=== PATIENT | female | born 1980 | race Caucasian/White ===

== ENCOUNTER 2023-12-14 20:09 | Emergency (ER) | payer OTHER, SELFPAY ==
[2023-12-14 20:16] VITALS: BP 126/79
[2023-12-14 20:46] VITALS: BMI 26.6
--- NOTE | 2023-12-14 20:52 | EDRN ---
Couple days ago pt felt like she was getting a uti which she says she has not had in 20 years. Pt said there was a bad smell and she was concerned it was also a yeast infection. 5 days ago pt noted blood in her urine. Pt woke this morning and she
was unable to move - pt feels pain from pubic area across center to top of legs, around to back and posterior hips. Pt says her head is pounding and admits she has been crying. Pt has not been to her physician for symptoms. Pt has urologist
across the street. No fever/chills/cough. Pt notes burning with urination, muscles hurt. No blood noted in urine today. Pt has 2 broken ribs on R side and says she never went to a doctor - pt self diagnosed 2 broken ribs 'because you can feel
them, I fell really hard' so pt has intermittent cp/sob. Nausea no vomiting. No diarrhea. Pt reports constipation and says her last BM was couple days ago.
[2023-12-14 20:56] LABS: Urine Albumin Negative (Neg - Trace); Urine Bilirubin Negative (Negative); Urine Character Very Cloudy (Clear); Urine Color Yellow; Urine Glucose Negative (Negative); Urine Ketone Negative (Negative); Urine Leukocyte 1+ (Negative); Urine Nitrite Positive (Negative); Urine Occult Blood Negative (Negative); Urine Urobilinogen Negative (Neg - 1+)
[2023-12-14 21:03] LABS: Urine Amorphous Seen; Urine Squamous Cell >30 /LPF (Few)
[2023-12-14 21:04] LABS: Urine Bacteria Many (Negative); Urine White Cell >100 /HPF (0-5)
[2023-12-14 21:05] LABS: Urine Red Blood Cell 0-2 /HPF (0-2)
--- NOTE | 2023-12-14 21:05 | EDRN ---
Pt took ibuprofen in the afternoon for headache and a second 325mg aspirin around 1830. Pt has photophobia.
[2023-12-14 21:11] VITALS: BP 109/84
--- NOTE | 2023-12-14 21:36 | ED.GENMED ---
Addendum entered and electronically signed by Sonido Bell PA-C 12/17/23 07:31:
Urine culture shows greater than 100,000 colony-forming units of gram-negative bacilli. Treated with Keflex. Sensitivities pending.
Original Note:
History of Present Illness
General
Chief Complaint: Abdominal Symptoms
Source: patient
Exam Limitations: none
Time Seen by Provider: 12/14/23 21:17
Nursing documentation reviewed up to this point in time: agreed with
History of Present Illness
History of Present Illness:
43-year-old female presents emergency department complaining of bilateral flank pain and suprapubic pain. She reports dysuria. This feels similar to prior urinary tract infections. She also has a headache which is similar to prior. She has a
history of migraines.
Past History
Past History
ED Past Medical History: Psychiatric (Bipolar disorder, Anxiety, Depression, PTSD, Binge eating disorer, ) and Other (Endometriosis, irritable bowel, Migraines, myofascial syndrome, chronic sinusitis,Endometriosis, Fatty liver, Kidney stones)
ED Past Surgical History: and Gynecological (Hysterectomy, [place], )
Social History
Tobacco: Smoker
Alcohol: None
Drug: None
Personal:
Living: with family
Family History
Family History: Other (nc)
Review of Systems
Review of Systems
Allergies reviewed?: Yes
All Other Systems: Not applicable
Constitutional: Reports no symptoms
EENT: Reports no symptoms
Respiratory: Reports no symptoms
Cardiac: Reports no symptoms
ABD/GI: Reports no symptoms
: Reports dysuria and flank pain
Musculoskeletal: Reports no symptoms
Skin: Reports no symptoms
Neurological: Reports no symptoms
Endocrine: Reports no symptoms
Hematologic/Lymphatic: Reports no symptoms
Psychiatric: Reports no symptoms
Phy Exam
Physical Exam
Physical Exam:
Physical Exam
General: no apparent distress, not acutely ill
Neck: supple. no meningeal signs. normal posterior pharynx
Heart: s1/s2 regular rate and rhythm, no murmur. equal radial
pulses.
HEENT: Pupils equal round reactive to light, EOMI
Lungs: no acute respiratory distress. clear bilaterally
Abdomen: normal bowel sounds. Mild suprapubic tenderness, no rebound or guarding. No CVAT
Neuro: alert and oriented. no focal neurological deficits
Skin: no rash
Psychiatric: well kept. interactive and cooperative
Extremities: no edema. no calf tenderness. negative homans. good distal pulses
Course
Orders/Labs/Results
Orders:
Orders
12/14/23 20:51
Urinalysis Reflex To Culture Urgent
Date Specimen was Collected: 12/14/23
Time Specimen was Collected: 20:46
Urine Microscopic Reflex Cult Urgent
Urine Culture Urgent
[facility]ILBUR Source: U
Specimen Description:
Date Specimen was Collected: 12/14/23
Time Specimen was Collected: 20:46
12/14/23 21:29
CT Abd/pel Without Iv Or Oral Urgent
Comment:
Reason For Exam: left flank pain, dysuria
IV Insert/Care/Rem.- Treatment PRN
0.9% Sodium Chloride 1000 ml [Nss] 1,000 ml IV BOLUS
12/14/23 21:32
Ketorolac [Toradol] 15 mg IV NOW STA
12/14/23 21:40
Complete Blood Count/With Diff Urgent
Comprehensive Metabolic Panel Urgent
12/14/23 23:04
Ketorolac [Toradol] 15 mg .ROUTE .STK-MED ONE
Ketorolac [Toradol] 15 mg IV NOW STA
12/15/23 00:56
Cephalexin Monohydrate [Keflex] 500 mg PO NOW STA
12/15/23 01:00
Rizatriptan Orally Disintegrat [Maxalt [employer] (Orally Disintegrating)] 10 mg PO ONCE ONE
Abnormal Lab Results
12/14/23 12/14/23
20:51 21:40
Hct 35.8 L %
(37.0-47.0)
Abs Immat Gran (auto) 0.1 H 10^3/uL
(0-0.05)
Absolute Neuts (auto) 7.2 H 10^3/uL
(1.4-6.5)
Absolute Lymphs (auto) 0.3 L 10^3/uL
(1.2-3.4)
Absolute Monos (auto) 0.7 H 10^3/uL
(0.1-0.6)
Immature Gran % 0.6 H %
(0-0.5)
Neutrophils % 85.1 H %
(42.2-75.2)
Lymphocytes % 4.1 L %
(20.5-51.1)
Urine Nitrite (Reflex) Positive A
(Negative)
Leukocyte Esterase Rfl 1+ A
(Negative)
Urine WBC (Reflex) >100 A /HPF
(0-5)
Urine Bacteria (Reflex) Many A
(Negative)
12/14/23 21:40
12/14/23 21:40
Vital Signs
Initial and Last Documented VS:
Initial Vital Signs
Temp Pulse Resp BP Pulse Ox
99.5 F 95 16 126/79 100
12/14/23 20:16 12/14/23 20:16 12/14/23 20:16 12/14/23 20:16 12/14/23 20:16
Last Documented Vital Signs
Temp Pulse Resp BP Pulse Ox
99.5 F 86 23 118/74 100
12/14/23 20:16 12/15/23 00:01 12/15/23 00:01 12/15/23 00:00 12/14/23 20:16
MDM/Problems Addressed
Differential Diagnosis Includes:
Kidney stone, pyelonephritis
MDM/Problems Addressed:
43-year-old female with migraine, cystitis. No signs of pyelonephritis or kidney stone. Treated with Keflex, Maxalt. Migraine similar to prior. Stable for discharge
Chronic conditions affecting care: Other (Cystitis)
Acute Exacerbation and/or Progression of Chronic Illness: Other (Cystitis)
*Radiology
Radiology exam reviewed: radiology read reviewed (CT abdomen pelvis shows likely cystitis)
*Critical Care Note
Total Time (30-74mins, 75-104mins- exclusive of procedures): Not Applicable
Patient Management
Social determinants of health affecting care: Living situation
Escalation/DeEscalation of care consider admission/obs:
Not indicated
ED Attending Note
-
Portions of this chart may have been created with voice recognition software.� Occasional wrong word or��sound alike� substitutions may have occurred due to the inherent limitations of voice recognition software.
Discharge Plan
Departure
Patient Disposition: Home (Routine Discharge)
Date of Disposition: 12/15/23
Time of Disposition: 01:02
Patient with high blood pressure during this ER visit?: No
Condition: Good
Discharge Problem:
Cystitis, Migraine
Instructions: Migraine in adults, Urinary Tract Infection, Adult ED
Prescriptions:
New
cephalexin 500 mg capsule
500 mg PO BID 7 Days Qty: 14 0RF
rizatriptan 5 mg tablet,disintegrating
10 mg PO Q2H MDD 30 mg PRN (Reason: migraine headache) Qty: 10 0RF
No Action
lamotrigine [Lamictal] 200 mg Tablet
200 mg PO DAILY
venlafaxine [Effexor XR] 150 mg Capsule,Extended Release 24hr
150 mg PO DAILY
dextroamphetamine-amphetamine [Adderall XR] 30 mg Capsule,Extended Release 24hr
30 mg PO DAILY
Referrals:
Nicolasa Sanchez PA-C [Family Provider] -
Susan Gill DO [Active] - Call in 1-3 days for appt
Interventions
Interventions:
*Risk Screen - Suicide Last Done: 12/14/23 20:46
*General Assessment Last Done: 12/14/23 20:46
*Neglect/Abuse Screening Last Done: 12/14/23 20:46
*ED COVID-19 Vaccine History Last Done: 12/14/23 20:46
GI-Zkltsf-Fjgnysdcdc Assessment Last Done: 12/14/23 21:02
Discharge Date and Time
Print Language: UPPER SORBIAN
[2023-12-14] MEDS: NSS 1000 IV (21:41)
[2023-12-14] MEDS: TORADOL 15 MG IV ×2 (21:45→23:07)
[2023-12-14 21:46] LABS: % Basophils 0.5 % (0-2); % Eosinophils 1.7 % (0-6); % Immature Granulocytes 0.6 % (0-0.5); % Lymphocytes 4.1 % (20.5-51.1); % Neutrophils 85.1 % (42.2-75.2); Absolute Eosinophils 0.1 10^3/uL (0-0.7); Absolute Immature Granulocytes 0.1 10^3/uL (0-0.05); Absolute Lymphocytes 0.3 10^3/uL (1.2-3.4); Absolute Monocytes 0.7 10^3/uL (0.1-0.6); Absolute Neutrophils 7.2 10^3/uL (1.4-6.5); Hematocrit 35.8 % (37.0-47.0); Hemoglobin 12.5 g/dL (12.0-16.0); Mean Corp Hgb Conc. 34.9 g/dL (33.0-37.0); Mean Corpuscular Hgb 29.3 pg (27.0-31.0); Mean Corpuscular Volume 83.8 fL (81.0-99.0); Mean Platelet Volume 8.4 fL (7.4-10.4); Nucleated Red Blood Cells % 0 %; Platelet Count 366 10^3/uL (130-400); Red Blood Cell Count 4.27 10^6/uL (4.20-5.40); Red Cell Dist. Width 13.2 % (11.5-14.5); White Blood Cell Count 8.4 10^3/uL (4.8-10.8)
[2023-12-14 22:00] VITALS: BP 140/90
[2023-12-14 22:15] LABS: ALT (SGPT) 12 U/L (0-35); AST (SGOT) 23 U/L (14-36); Albumin 4.2 g/dl (3.5-5.0); Alkaline Phosphatase 83 U/L (38-126); Blood Urea Nitrogen 11 mg/dl (7-17); Calcium 9.4 mg/dl (8.4-10.2); Carbon Dioxide 25 mmol/L (22-30); Chloride 102 mmol/L (98-107); Estimated Creatinine Clearance 109 ml/min; Glucose 90 mg/dl (70-99); Potassium 3.8 mmol/L (3.5-5.1); Sodium 135 mmol/L (135-145); Total Bilirubin 0.2 mg/dl (0.2-1.3); Total Protein 6.8 g/dl (6.3-8.2); eGFR > 60.00
[2023-12-14 23:11] VITALS: BP 119/84
[2023-12-15] VITALS: BP 118/74
[2023-12-15] MEDS: KEFLEX 500 MG PO (01:05)
[2023-12-15] MEDS: MAXALT MLT (ORALLY DISINTEGRATING) 10 MG PO (01:06)
[2023-12-15 01:07] VITALS: BP 122/84
== END 2023-12-15 01:40 | disposition home or self-care (01) ==
LOC: EMR 20:09
PROVIDERS: EMERGENCY PHYSICIAN Emergency Medicine; FAMILY PHYSICIAN Physician Assistant
DX: N30.20 Other chronic cystitis without hematuria (principal); G43.909 Migraine, unspecified, not intractable, without status migrainosus; F31.9 Bipolar disorder, unspecified; F43.10 Post-traumatic stress disorder, unspecified; F17.200 Nicotine dependence, unspecified, uncomplicated; K58.9 Irritable bowel syndrome, unspecified; Z87.440 Personal history of urinary (tract) infections; Z87.442 Personal history of urinary calculi; Z90.710 Acquired absence of both cervix and uterus
CPT/HCPCS: 99284; 96374; 96376; 96361; 74176; 80053; 81003; 81015; 85025; 87077; 87086; 87186